=== PATIENT | male | born 1950 | race Caucasian/White ===

== ENCOUNTER 2016-03-23 08:00 | Outpatient (RCR) | payer OTHER ==
[2015-01-18 21:20] VITALS: BP 131/73
[~2016-03-23 08:00] MED LIST: AMARYL2 MG PO; ATORVASTATIN CA10 MG PO; EXCEDRIN P.M. T1 TAB PO; LISINOPRIL10 MG PO; METFORMIN500 MG PO; MULTIPLE VITAMI1 CAP PO; NAPROXEN220 MG PO; NAPROXEN250 MG PO; NAPROXEN500 M1 PO; PRILOSEC 20MG20 MG PO; RAPAFLO4 MG PO; TYLENOL 500MG500 MG PO; TYLENOL EXTRA500 M1 PO; ULTRAM50 M1 PO; VIBRAMYCIN100 MG PO; ZITHROMAX Z PA250 MG PO
== END 2016-03-24 | disposition home or self-care (01) ==
LOC: PT
DX: M75.102 Unspecified rotator cuff tear or rupture of left shoulder, not specified as traumatic (principal); Z47.89 Encounter for other orthopedic aftercare

== ENCOUNTER 2016-03-27 10:41 | Outpatient (RCR) | payer OTHER ==
[2015-01-18 21:20] VITALS: BP 131/73
[2016-05-17] MEDS ORDERED: LEVAQUIN 750MG750 M1 PO (22:26)
[2016-05-17] MEDS ORDERED: GLUCOPHAGE1000 MG PO (22:28)
[2016-05-17] MEDS ORDERED: AMARYL4 M1 PO (22:28)
[2016-05-17] MEDS ORDERED: CLOPIDOGREL PO (22:29)
[2016-05-17] MEDS ORDERED: TOPROL XL 25MG25 MG PO (22:29)
[2016-05-17] MEDS ORDERED: SINGULAIR PO (22:30)
[2016-05-17] MEDS ORDERED: PRINIVIL10 M1 PO (22:30)
[2016-05-17] MEDS ORDERED: ASPIRIN ADULT L81 M3 PO (22:30)
[2016-05-17] MEDS ORDERED: VITAMIN C PURE500 M1 PO (22:30)
[2016-05-17] MEDS ORDERED: ALL DAY PAIN R220 MG PO (22:31)
[2016-05-17] MEDS ORDERED: LIPITOR20 M2 PO (22:31)
== END 2016-05-27 10:20 | disposition home or self-care (01) ==
LOC: PT 10:41
DX: Z47.89 Encounter for other orthopedic aftercare (principal); M75.102 Unspecified rotator cuff tear or rupture of left shoulder, not specified as traumatic

== ENCOUNTER 2016-05-17 21:59 | Emergency (ER) | payer OTHER ==
[2016-05-17] MEDS ORDERED: LEVAQUIN 750MG750 M1 PO (22:26)
[2016-05-17] MEDS ORDERED: GLUCOPHAGE1000 MG PO (22:28)
[2016-05-17] MEDS ORDERED: AMARYL4 M1 PO (22:28)
[2016-05-17] MEDS ORDERED: CLOPIDOGREL PO (22:29)
[2016-05-17] MEDS ORDERED: TOPROL XL 25MG25 MG PO (22:29)
[2016-05-17] MEDS ORDERED: ASPIRIN ADULT L81 M3 PO (22:30)
[2016-05-17] MEDS ORDERED: PRINIVIL10 M1 PO (22:30)
[2016-05-17] MEDS ORDERED: SINGULAIR PO (22:30)
[2016-05-17] MEDS ORDERED: VITAMIN C PURE500 M1 PO (22:30)
[2016-05-17] MEDS ORDERED: ALL DAY PAIN R220 MG PO (22:31)
[2016-05-17] MEDS ORDERED: LIPITOR20 M2 PO (22:31)
[2016-05-18 00:30] VITALS: BP 126/82
== END 2016-05-18 00:30 | disposition home or self-care (01) ==
LOC: ED 21:59
DX: R06.00 Dyspnea, unspecified (principal); J44.1 Chronic obstructive pulmonary disease with (acute) exacerbation; I25.10 Atherosclerotic heart disease of native coronary artery without angina pectoris; E10.9 Type 1 diabetes mellitus without complications; I10 Essential (primary) hypertension; Z87.891 Personal history of nicotine dependence; Z79.82 Long term (current) use of aspirin
CPT/HCPCS: Q9967

== ENCOUNTER 2016-08-16 15:18 | Emergency (ER) | payer OTHER ==
[~2016-08-16] VITALS: Ht 182.9 cm; Wt 95.5 kg
[~2016-08-16 15:18] MED LIST changes: +ALL DAY PAIN R220 MG PO; +AMARYL4 M1 PO; +ASPIRIN ADULT L81 M3 PO; +CLOPIDOGREL PO; +GLUCOPHAGE1000 MG PO; +LEVAQUIN 750MG750 M1 PO; +LIPITOR20 M2 PO; +PRINIVIL10 M1 PO; +SINGULAIR PO; +TOPROL XL 25MG25 MG PO; +VITAMIN C PURE500 M1 PO
[2016-08-16] MEDS ORDERED: GLUCOPHAGE PO (15:30)
[2016-08-16] MEDS ORDERED: RT ADVAIR HFA 1112 G IH (15:31)
[2016-08-16] MEDS ORDERED: COMBIVENT RESPI1 SPR IH (15:31)
[2016-08-16 16:00] VITALS: BP 114/78
== END 2016-08-16 16:00 | disposition home or self-care (01) ==
LOC: ED 15:18
DX: Z48.01 Encounter for change or removal of surgical wound dressing (principal)

== ENCOUNTER 2016-08-24 09:07 | Outpatient (RCR) | payer MEDICARE ==
[~2016-08-24 09:07] MED LIST changes: +COMBIVENT RESPI1 SPR IH; +GLUCOPHAGE PO; +RT ADVAIR HFA 1112 G IH
== END 2016-11-22 | disposition still patient (30) ==
LOC: CARDREHAB
DX: Z95.5 Presence of coronary angioplasty implant and graft (principal); Z47.89 Encounter for other orthopedic aftercare

== ENCOUNTER 2016-11-23 09:00 | Outpatient (RCR) | payer MEDICARE | END 2017-02-21 | disposition home or self-care (01) | LOC: CARDREHAB | DX: Z48.812 Encounter for surgical aftercare following surgery on the circulatory system (principal); Z95.5 Presence of coronary angioplasty implant and graft ==

== ENCOUNTER → 2017-01-05 | Outpatient (CLI) | payer MEDICARE | LOC: RAD 07:51 | DX: R22.1 Localized swelling, mass and lump, neck (principal); R93.8 Abnormal findings on diagnostic imaging of other specified body structures ==

== ENCOUNTER 2017-02-27 16:19 | Emergency (ER) | payer MEDICARE ==
[~2017-02-27] VITALS: Wt 101.8 kg
[2017-02-27] MEDS ORDERED: CIPRO 500MG TA500 MG PO (16:34)
[2017-02-27] MEDS ORDERED: SINGULAIR 110 MG/TAB PO (16:34)
[2017-02-27] MEDS ORDERED: ASPIR LOW81 MG PO (16:35)
[2017-02-27] MEDS ORDERED: NEURONTIN300 MG/CAP (16:36)
[2017-02-27] MEDS ORDERED: PRILOSEC 20MG20 MG PO (16:36)
[2017-02-27 17:49] LABS: HEMATOCRIT 38.7 % (42.0-52.0); HEMOGLOBIN 13.3 g/dL (13.5-18.0); MEAN CELL VOLUME 96 fl (78-100); MEAN CORPUSCULAR HEMOGLOBIN 33 pg (27-31); MEAN CORPUSCULAR HGB CONC 34 g/dL (33-37); MEAN PLATELET VOLUME 11.5 fl (7.4-10.4); PLATELET COUNT 152 K/mm3 (130-400); RED BLOOD COUNT 4.05 M/mm3 (4.20-5.60); RED CELL DISTRIBUTION WIDTH 11.7 % (11.5-14.5); WHITE BLOOD COUNT 14.1 K/mm3 (4.8-10.8)
[2017-02-27 17:59] LABS: BUN/CREATININE RATIO 20.3 (6.0-26.0); CALCIUM 8.9 mg/dL (8.4-10.2); POTASSIUM 4.2 mmol/L (3.6-5.0)
[2017-02-27 18:00] LABS: LYMPHOCYTE 12 % (20-51); MONOCYTE 9 % (3-10); NEUTROPHILS 78 % (42-75)
[2017-02-27 20:27] VITALS: BP 136/75
== END 2017-02-27 20:02 | disposition short-term general hospital (02) ==
LOC: ED 16:19
PROVIDERS: Family Medicine
DX: R33.9 Retention of urine, unspecified (principal); R31.0 Gross hematuria; Z98.890 Other specified postprocedural states; Z79.02 Long term (current) use of antithrombotics/antiplatelets; Z79.82 Long term (current) use of aspirin; E11.9 Type 2 diabetes mellitus without complications; I10 Essential (primary) hypertension; Z95.5 Presence of coronary angioplasty implant and graft; J44.9 Chronic obstructive pulmonary disease, unspecified; K21.9 Gastro-esophageal reflux disease without esophagitis; Z79.84 Long term (current) use of oral hypoglycemic drugs
CPT/HCPCS: A4322; A4358

== ENCOUNTER 2017-06-16 12:41 | Emergency (ER) | payer MEDICARE ==
[~2017-06-16] VITALS: Ht 182.9 cm; Wt 93.2 kg
[~2017-06-16 12:41] MED LIST changes: +ASPIR LOW81 MG PO; +CIPRO 500MG TA500 MG PO; +NEURONTIN300 MG/CAP; +SINGULAIR 110 MG/TAB PO
[2017-06-16] MEDS ORDERED: CLOPIDOGREL75 M2 PO (13:13)
[2017-06-16] MEDS ORDERED: METFORMIN HYD1000 MG PO (13:14)
[2017-06-16] MEDS ORDERED: GLIMEPIRIDE4 MG PO (13:17)
[2017-06-16] MEDS ORDERED: ATORVASTATIN CA40 MG PO (13:18)
[2017-06-16] MEDS ORDERED: FLUTICASON0.05 MG/AC NS (13:19)
[2017-06-16] MEDS ORDERED: BEVESPI AEROS10.7 GM IH (13:21)
[2017-06-16] MEDS ORDERED: TYLENOL PM EXTR1 TA1 PO (13:23)
[2017-06-16 14:12] LABS: HEMATOCRIT 43.9 % (42.0-52.0); HEMOGLOBIN 14.6 g/dL (13.5-18.0); MEAN CELL VOLUME 91 fl (78-100); MEAN CORPUSCULAR HEMOGLOBIN 30 pg (27-31); MEAN CORPUSCULAR HGB CONC 33 g/dL (33-37); MEAN PLATELET VOLUME 11.4 fl (7.4-10.4); PLATELET COUNT 163 K/mm3 (130-400); RED BLOOD COUNT 4.82 M/mm3 (4.20-5.60); RED CELL DISTRIBUTION WIDTH 12.9 % (11.5-14.5); WHITE BLOOD COUNT 7.3 K/mm3 (4.8-10.8)
[2017-06-16 14:26] VITALS: BP 135/89
[2017-06-16 14:37] LABS: LYMPHOCYTE 33 % (20-51); NEUTROPHILS 54 % (42-75)
[2017-06-16 14:38] LABS: MONOCYTE 10 % (3-10)
== END 2017-06-16 14:41 | disposition home or self-care (01) ==
LOC: ED 12:41
PROVIDERS: Nurse Practitioner
DX: R04.0 Epistaxis (principal); Z79.02 Long term (current) use of antithrombotics/antiplatelets; Z88.1 Allergy status to other antibiotic agents; Z88.5 Allergy status to narcotic agent; Z88.8 Allergy status to other drugs, medicaments and biological substances; Z91.018 Allergy to other foods; Z87.891 Personal history of nicotine dependence; I25.10 Atherosclerotic heart disease of native coronary artery without angina pectoris; Z95.5 Presence of coronary angioplasty implant and graft; I10 Essential (primary) hypertension; J44.9 Chronic obstructive pulmonary disease, unspecified; Z79.82 Long term (current) use of aspirin; K21.9 Gastro-esophageal reflux disease without esophagitis; E11.9 Type 2 diabetes mellitus without complications; Z79.84 Long term (current) use of oral hypoglycemic drugs

== ENCOUNTER 2017-10-17 17:44 | Observation (INO) | payer MEDICARE ==
[~2017-10-17] VITALS: Ht 182.9 cm; Wt 94.2 kg
[~2017-10-17 17:44] MED LIST changes: +ATORVASTATIN CA40 MG PO; +BEVESPI AEROS10.7 GM IH; +CLOPIDOGREL75 M2 PO; +FLUTICASON0.05 MG/AC NS; +GLIMEPIRIDE4 MG PO; +METFORMIN HYD1000 MG PO; +TYLENOL PM EXTR1 TA1 PO
[2017-10-17 18:42] LABS: HEMATOCRIT 42.8 % (42.0-52.0); HEMOGLOBIN 14.8 g/dL (13.5-18.0); MEAN CELL VOLUME 92 fl (78-100); MEAN CORPUSCULAR HEMOGLOBIN 32 pg (27-31); MEAN CORPUSCULAR HGB CONC 35 g/dL (33-37); MEAN PLATELET VOLUME 11.1 fl (7.4-10.4); PLATELET COUNT 155 K/mm3 (130-400); RED BLOOD COUNT 4.64 M/mm3 (4.20-5.60); RED CELL DISTRIBUTION WIDTH 12.7 % (11.5-14.5); WHITE BLOOD COUNT 8.3 K/mm3 (4.8-10.8)
[2017-10-17 18:54] LABS: ALBUMIN 4.3 g/dL (3.5-5.0); TOTAL BILIRUBIN 0.5 mg/dL (0.2-1.3); TOTAL PROTEIN 7.5 g/dL (6.3-8.2)
[2017-10-17 22:08] LABS: BAND 0 % (0-10)
[2017-10-17 22:09] LABS: LYMPHOCYTE 20 % (20-51); MONOCYTE 16 % (3-10); NEUTROPHILS 58 % (42-75)
[2017-10-17 23:19] VITALS: BP 126/76
[2017-10-17 23:24] VITALS: BP 126/76
[2017-10-18 03:04] VITALS: BP 107/65
[2017-10-18 06:48] VITALS: BP 110/67
== END 2017-10-18 07:12 | disposition home or self-care (01) ==
LOC: ED 17:44 → MED/SURG 23:10
PROVIDERS: ADMIT Family Medicine
DX: R07.9 Chest pain, unspecified (principal); R79.89 Other specified abnormal findings of blood chemistry; K21.9 Gastro-esophageal reflux disease without esophagitis; E11.9 Type 2 diabetes mellitus without complications; J44.9 Chronic obstructive pulmonary disease, unspecified; I25.10 Atherosclerotic heart disease of native coronary artery without angina pectoris; I10 Essential (primary) hypertension; Z95.5 Presence of coronary angioplasty implant and graft; Z79.899 Other long term (current) drug therapy; Z79.02 Long term (current) use of antithrombotics/antiplatelets; Z79.82 Long term (current) use of aspirin; Z79.84 Long term (current) use of oral hypoglycemic drugs; I25.2 Old myocardial infarction; Z95.818 Presence of other cardiac implants and grafts
CPT/HCPCS: G0378; J1644

== ENCOUNTER 2017-11-02 08:19 | Outpatient (RCR) | payer MEDICARE | END 2017-11-11 12:00 | disposition home or self-care (01) | LOC: CARDREHAB 08:19 | DX: Z48.812 Encounter for surgical aftercare following surgery on the circulatory system (principal); Z95.818 Presence of other cardiac implants and grafts; Z98.61 Coronary angioplasty status ==

== ENCOUNTER 2017-11-18 08:18 | Outpatient (RCR) | payer MEDICARE, OTHER ==
[2017-11-27] MEDS ORDERED: CLEOCIN HCL150 M1 PO (18:08)
== END 2018-02-16 | disposition home or self-care (01) ==
LOC: CARDREHAB
DX: Z48.812 Encounter for surgical aftercare following surgery on the circulatory system (principal); Z95.818 Presence of other cardiac implants and grafts; Z98.61 Coronary angioplasty status

== ENCOUNTER 2017-11-27 17:32 | Emergency (ER) | payer MEDICARE, OTHER ==
[2017-11-27] MEDS ORDERED: CLEOCIN HCL150 M1 PO (18:08)
[2017-11-27 18:16] VITALS: BP 144/79
== END 2017-11-27 18:18 | disposition home or self-care (01) ==
LOC: ED 17:32
DX: S81.841A Puncture wound with foreign body, right lower leg, initial encounter (principal); W45.8XXA Other foreign body or object entering through skin, initial encounter; Y92.828 Other wilderness area as the place of occurrence of the external cause; I25.10 Atherosclerotic heart disease of native coronary artery without angina pectoris; E11.9 Type 2 diabetes mellitus without complications; Z23 Encounter for immunization; J44.9 Chronic obstructive pulmonary disease, unspecified; Z79.899 Other long term (current) drug therapy; Z79.82 Long term (current) use of aspirin; Z79.02 Long term (current) use of antithrombotics/antiplatelets
CPT/HCPCS: 90715

== ENCOUNTER → 2017-12-24 | Outpatient (CLI) | payer MEDICARE, OTHER ==
[2017-11-27 18:16] VITALS: BP 144/79
[~2017-12-24] MED LIST changes: +CLEOCIN HCL150 M1 PO
== END ==
LOC: RAD 09:21
DX: R10.31 Right lower quadrant pain (principal); Z95.9 Presence of cardiac and vascular implant and graft, unspecified; Z98.890 Other specified postprocedural states

== ENCOUNTER 2018-02-17 08:30 | Outpatient (RCR) | payer MEDICARE, OTHER ==
[2018-05-02 18:56] VITALS: BP 135/78
== END 2018-05-05 09:41 | disposition home or self-care (01) ==
LOC: CARDREHAB 08:30
DX: Z48.812 Encounter for surgical aftercare following surgery on the circulatory system (principal); Z95.818 Presence of other cardiac implants and grafts; Z98.61 Coronary angioplasty status

== ENCOUNTER 2018-05-02 12:58 | Emergency (ER) | payer MEDICARE ==
[~2018-05-02] VITALS: Ht 182.9 cm; Wt 93.2 kg
[2018-05-02 13:50] LABS: HEMATOCRIT 46.3 % (42.0-52.0); HEMOGLOBIN 15.6 g/dL (13.5-18.0); MEAN CELL VOLUME 92 fl (78-100); MEAN CORPUSCULAR HEMOGLOBIN 31 pg (27-31); MEAN CORPUSCULAR HGB CONC 34 g/dL (33-37); PLATELET COUNT 132 K/mm3 (130-400); RED BLOOD COUNT 5.05 M/mm3 (4.20-5.60); RED CELL DISTRIBUTION WIDTH 12.6 % (11.5-14.5)
[2018-05-02 14:09] LABS: MEAN PLATELET VOLUME 12.1 fl (7.4-10.4)
[2018-05-02 14:13] LABS: PROTHROMBIN TIME 11.1 SECONDS (9.0-12.0)
[2018-05-02 14:16] LABS: ALBUMIN 4.4 g/dL (3.5-5.0); CALCIUM 9.1 mg/dL (8.4-10.2); TOTAL BILIRUBIN 0.6 mg/dL (0.2-1.3); TOTAL PROTEIN 7.8 g/dL (6.3-8.2)
[2018-05-02 14:25] LABS: BAND 1 % (0-10); LYMPHOCYTE 35 % (20-51); MONOCYTE 12 % (3-10); NEUTROPHILS 45 % (42-75); TROPONIN-I < 0.03 ng/mL (0.00-0.06)
[2018-05-02 18:56] VITALS: BP 135/78
== END 2018-05-02 18:27 | disposition home or self-care (01) ==
LOC: ED 12:58
PROVIDERS: Nurse Practitioner Primary Care
DX: R07.9 Chest pain, unspecified (principal); I25.10 Atherosclerotic heart disease of native coronary artery without angina pectoris; I10 Essential (primary) hypertension; K21.9 Gastro-esophageal reflux disease without esophagitis; Z79.02 Long term (current) use of antithrombotics/antiplatelets; Z94.84 Stem cells transplant status; Z90.79 Acquired absence of other genital organ(s); Z95.828 Presence of other vascular implants and grafts

== ENCOUNTER → 2018-07-05 | Outpatient (CLI) | payer MEDICARE | LOC: RAD 08:15 | DX: J43.9 Emphysema, unspecified (principal); K76.0 Fatty (change of) liver, not elsewhere classified; K57.30 Diverticulosis of large intestine without perforation or abscess without bleeding | CPT/HCPCS: Q9967 ==

== ENCOUNTER → 2018-08-03 | Day surgery (SDC) | payer MEDICARE | LOC: MSO 08:42 | DX: H26.492 Other secondary cataract, left eye (principal); M19.90 Unspecified osteoarthritis, unspecified site; J44.9 Chronic obstructive pulmonary disease, unspecified; E11.9 Type 2 diabetes mellitus without complications; I10 Essential (primary) hypertension; Z79.01 Long term (current) use of anticoagulants; Z79.84 Long term (current) use of oral hypoglycemic drugs; Z88.6 Allergy status to analgesic agent; Z88.1 Allergy status to other antibiotic agents; Z88.8 Allergy status to other drugs, medicaments and biological substances; Z79.52 Long term (current) use of systemic steroids ==

== ENCOUNTER → 2018-09-07 | Day surgery (SDC) | payer MEDICARE | LOC: MSO 09:30 | DX: H26.491 Other secondary cataract, right eye (principal); Z88.1 Allergy status to other antibiotic agents; Z88.6 Allergy status to analgesic agent ==

== ENCOUNTER 2018-10-11 10:17 | Emergency (ER) | payer MEDICARE ==
[~2018-10-11] VITALS: Wt 96.3 kg
[2018-10-11 10:45] LABS: HEMATOCRIT 42.3 % (42.0-52.0); HEMOGLOBIN 14.4 g/dL (13.5-18.0); MEAN CELL VOLUME 94 fl (78-100); MEAN CORPUSCULAR HEMOGLOBIN 32 pg (27-31); MEAN CORPUSCULAR HGB CONC 34 g/dL (33-37); MEAN PLATELET VOLUME 11.2 fl (7.4-10.4); PLATELET COUNT 131 K/mm3 (130-400); RED BLOOD COUNT 4.52 M/mm3 (4.20-5.60); RED CELL DISTRIBUTION WIDTH 12.6 % (11.5-14.5); WHITE BLOOD COUNT 5.5 K/mm3 (4.8-10.8)
[2018-10-11 10:54] LABS: ALBUMIN 3.9 g/dL (3.4-4.8); SODIUM 138 mmol/L (136-145)
[2018-10-11 10:56] LABS: CALCIUM 8.8 mg/dL (8.3-10.5)
[2018-10-11 10:57] LABS: GLUCOSE 196 mg/dL (75-110); TOTAL PROTEIN 6.7 g/dL (6.2-8.1)
[2018-10-11 10:58] LABS: CARBON DIOXIDE 21 mmol/L (23-31)
[2018-10-11 10:59] LABS: TOTAL BILIRUBIN 0.5 mg/dL (0.2-1.2)
[2018-10-11 11:01] LABS: LYMPHOCYTE 22 % (20-51); MONOCYTE 11 % (3-10); NEUTROPHILS 63 % (42-75)
[2018-10-11 11:02] LABS: AST-SGOT 28 U/L (5-34)
[2018-10-11 11:03] LABS: ALT/SGPT 37 U/L (0-55)
[2018-10-11 11:10] LABS: TROPONIN-I < 0.03 ng/mL (<0.030)
[2018-10-11] MEDS ORDERED: PREDNISONE20 M1 PO (11:55)
[2018-10-11] MEDS ORDERED: ALBUTEROL2.5 MG/3 M IH (11:55)
[2018-10-11 12:09] VITALS: BP 122/73
[2018-10-11] MEDS ORDERED: TYLENOL EXTRA500 M2 PO (12:35)
[2018-10-11] MEDS ORDERED: TYLENOL PM EXTR1 TA1 PO (12:36)
[2018-10-11] MEDS ORDERED: GLUTATHIONE IH (12:38)
[2018-10-11] MEDS ORDERED: NITROSTAT0.4 M1 SL (12:39)
[2018-10-11] MEDS ORDERED: PROTONIX20 M1 PO (12:41)
[2018-10-11] MEDS ORDERED: REVATIO20 MG PO (12:41)
== END 2018-10-11 12:09 | disposition home or self-care (01) ==
LOC: ED 10:17
PROVIDERS: Nurse Practitioner Primary Care
DX: J44.1 Chronic obstructive pulmonary disease with (acute) exacerbation (principal); I25.10 Atherosclerotic heart disease of native coronary artery without angina pectoris; I50.9 Heart failure, unspecified; Z95.5 Presence of coronary angioplasty implant and graft; Z90.49 Acquired absence of other specified parts of digestive tract; Z98.890 Other specified postprocedural states
CPT/HCPCS: J1100

== ENCOUNTER 2018-12-06 18:38 | Emergency (ER) | payer MEDICARE ==
[~2018-12-06] VITALS: Ht 182.9 cm; Wt 96.6 kg
[~2018-12-06 18:38] MED LIST changes: +ALBUTEROL2.5 MG/3 M IH; +GLUTATHIONE IH; +NITROSTAT0.4 M1 SL; +PREDNISONE20 M1 PO; +PROTONIX20 M1 PO; +REVATIO20 MG PO; +TYLENOL EXTRA500 M2 PO
[2018-12-06] MEDS ORDERED: METOPROLOL SUCC25 M1 PO (18:53)
[2018-12-06] MEDS ORDERED: ATORVASTATIN CA80 MG PO (18:57)
[2018-12-06] MEDS ORDERED: TRELEGY ELLIPT1 EACH IH (18:58)
[2018-12-06 19:23] LABS: HEMATOCRIT 42.2 % (42.0-52.0); HEMOGLOBIN 14.2 g/dL (13.5-18.0); MEAN CELL VOLUME 94 fl (78-100); MEAN CORPUSCULAR HEMOGLOBIN 32 pg (27-31); MEAN CORPUSCULAR HGB CONC 34 g/dL (33-37); PLATELET COUNT 140 K/mm3 (130-400); RED BLOOD COUNT 4.47 M/mm3 (4.20-5.60); RED CELL DISTRIBUTION WIDTH 12.6 % (11.5-14.5); WHITE BLOOD COUNT 6.2 K/mm3 (4.8-10.8)
[2018-12-06 19:30] LABS: ALBUMIN 3.7 g/dL (3.4-4.8); POTASSIUM 3.9 mmol/L (3.5-5.1); SODIUM 140 mmol/L (136-145)
[2018-12-06 19:31] LABS: CALCIUM 8.4 mg/dL (8.3-10.5)
[2018-12-06 19:32] LABS: GLUCOSE 189 mg/dL (75-110)
[2018-12-06 19:33] LABS: TOTAL PROTEIN 6.6 g/dL (6.2-8.1)
[2018-12-06 19:34] LABS: CARBON DIOXIDE 26 mmol/L (23-31); TOTAL BILIRUBIN 0.4 mg/dL (0.2-1.2)
[2018-12-06 19:38] LABS: AST-SGOT 22 U/L (5-34)
[2018-12-06 19:39] LABS: ALT/SGPT 26 U/L (0-55)
[2018-12-06 19:45] LABS: CKMB ISOENZYME 0.9 ng/mL (0.0-3.5)
[2018-12-06 19:50] LABS: TROPONIN-I < 0.03 ng/mL (<0.030)
[2018-12-06 20:08] LABS: D-DIMER 1.18 mg/L FEU (0.15-0.50)
[2018-12-06 20:10] LABS: LYMPHOCYTE 29 % (20-51); MONOCYTE 12 % (3-10); NEUTROPHILS 57 % (42-75)
[2018-12-06 22:35] VITALS: BP 124/69
== END 2018-12-06 22:35 | disposition short-term general hospital (02) ==
LOC: ED 18:38
PROVIDERS: Nurse Practitioner Family
DX: J84.10 Pulmonary fibrosis, unspecified (principal); I25.10 Atherosclerotic heart disease of native coronary artery without angina pectoris; R55 Syncope and collapse; E11.9 Type 2 diabetes mellitus without complications; I10 Essential (primary) hypertension; E78.5 Hyperlipidemia, unspecified; J44.9 Chronic obstructive pulmonary disease, unspecified; K21.9 Gastro-esophageal reflux disease without esophagitis; Z90.79 Acquired absence of other genital organ(s); Z95.5 Presence of coronary angioplasty implant and graft; Z98.890 Other specified postprocedural states; Z79.82 Long term (current) use of aspirin; Z79.02 Long term (current) use of antithrombotics/antiplatelets; Z87.891 Personal history of nicotine dependence
CPT/HCPCS: Q9967

== ENCOUNTER 2019-05-05 18:15 | Emergency (ER) | payer MEDICARE ==
[~2019-05-05] VITALS: Wt 91.9 kg
[~2019-05-05 18:15] MED LIST changes: +ATORVASTATIN CA80 MG PO; +METOPROLOL SUCC25 M1 PO; +TRELEGY ELLIPT1 EACH IH
[2019-05-05 18:52] LABS: HEMATOCRIT 46.4 % (42.0-52.0); HEMOGLOBIN 15.3 g/dL (13.5-18.0); MEAN CELL VOLUME 95 fl (78-100); MEAN CORPUSCULAR HEMOGLOBIN 31 pg (27-31); MEAN CORPUSCULAR HGB CONC 33 g/dL (33-37); MEAN PLATELET VOLUME 11.8 fl (7.4-10.4); PLATELET COUNT 164 K/mm3 (130-400); RED BLOOD COUNT 4.89 M/mm3 (4.20-5.60); RED CELL DISTRIBUTION WIDTH 12.6 % (11.5-14.5); WHITE BLOOD COUNT 6.9 K/mm3 (4.8-10.8)
[2019-05-05 19:13] LABS: ALBUMIN 4.2 g/dL (3.4-4.8); POTASSIUM 4.3 mmol/L (3.5-5.1)
[2019-05-05 19:14] LABS: CALCIUM 8.4 mg/dL (8.3-10.5)
[2019-05-05 19:15] LABS: LYMPHOCYTE 28 % (20-51); NEUTROPHILS 55 % (42-75); TOTAL PROTEIN 7.4 g/dL (6.2-8.1)
[2019-05-05 19:16] LABS: MONOCYTE 13 % (3-10)
[2019-05-05 19:17] LABS: TOTAL BILIRUBIN 0.3 mg/dL (0.2-1.2)
[2019-05-05 19:54] VITALS: BP 135/86
== END 2019-05-05 19:54 | disposition home or self-care (01) ==
LOC: ED 18:15
PROVIDERS: Family Medicine
DX: M94.0 Chondrocostal junction syndrome [Tietze] (principal); E11.9 Type 2 diabetes mellitus without complications; J44.9 Chronic obstructive pulmonary disease, unspecified; J84.10 Pulmonary fibrosis, unspecified; Z79.02 Long term (current) use of antithrombotics/antiplatelets; Z79.82 Long term (current) use of aspirin; Z79.84 Long term (current) use of oral hypoglycemic drugs; Z87.891 Personal history of nicotine dependence; Z94.84 Stem cells transplant status; Z95.5 Presence of coronary angioplasty implant and graft

== ENCOUNTER 2019-05-21 22:16 | Emergency (ER) | payer MEDICARE ==
[~2019-05-21] VITALS: Ht 180.3 cm; Wt 84.6 kg
[2019-05-21 23:29] LABS: HEMOGLOBIN 14.5 g/dL (13.5-18.0); MEAN CELL VOLUME 94 fl (78-100); MEAN CORPUSCULAR HEMOGLOBIN 32 pg (27-31); MEAN CORPUSCULAR HGB CONC 34 g/dL (33-37); MEAN PLATELET VOLUME 11.7 fl (7.4-10.4); PLATELET COUNT 167 K/mm3 (130-400); RED BLOOD COUNT 4.57 M/mm3 (4.20-5.60); RED CELL DISTRIBUTION WIDTH 12.8 % (11.5-14.5); WHITE BLOOD COUNT 6.7 K/mm3 (4.8-10.8)
[2019-05-21 23:31] LABS: ALBUMIN 4.2 g/dL (3.4-4.8)
[2019-05-21 23:32] LABS: POTASSIUM 3.8 mmol/L (3.5-5.1)
[2019-05-21 23:33] LABS: CALCIUM 9.3 mg/dL (8.3-10.5)
[2019-05-21 23:34] LABS: TOTAL PROTEIN 7.1 g/dL (6.2-8.1)
[2019-05-21 23:36] LABS: TOTAL BILIRUBIN 0.4 mg/dL (0.2-1.2)
[2019-05-21 23:44] LABS: LYMPHOCYTE 30 % (20-51); MONOCYTE 12 % (3-10); NEUTROPHILS 53 % (42-75)
[2019-05-22 01:25] VITALS: BP 138/68
== END 2019-05-22 01:25 | disposition home or self-care (01) ==
LOC: ED 22:16
PROVIDERS: Nurse Practitioner Primary Care
DX: R14.1 Gas pain (principal); I25.10 Atherosclerotic heart disease of native coronary artery without angina pectoris; I25.2 Old myocardial infarction; I10 Essential (primary) hypertension; J44.9 Chronic obstructive pulmonary disease, unspecified; K21.9 Gastro-esophageal reflux disease without esophagitis; E11.9 Type 2 diabetes mellitus without complications; Z79.02 Long term (current) use of antithrombotics/antiplatelets; Z79.82 Long term (current) use of aspirin; Z79.84 Long term (current) use of oral hypoglycemic drugs; Z86.79 Personal history of other diseases of the circulatory system; Z90.49 Acquired absence of other specified parts of digestive tract; Z95.5 Presence of coronary angioplasty implant and graft
CPT/HCPCS: Q9967

== ENCOUNTER 2019-06-03 09:57 | Emergency (ER) | payer MEDICARE ==
[~2019-06-03] VITALS: Ht 182.9 cm; Wt 92.7 kg
[2019-06-03 11:29] LABS: HEMATOCRIT 45.1 % (42.0-52.0); MEAN CELL VOLUME 95 fl (78-100); MEAN CORPUSCULAR HEMOGLOBIN 32 pg (27-31); MEAN CORPUSCULAR HGB CONC 33 g/dL (33-37); PLATELET COUNT 140 K/mm3 (130-400); RED BLOOD COUNT 4.74 M/mm3 (4.20-5.60); RED CELL DISTRIBUTION WIDTH 12.4 % (11.5-14.5); WHITE BLOOD COUNT 5.7 K/mm3 (4.8-10.8)
[2019-06-03 11:41] LABS: ALBUMIN 3.9 g/dL (3.4-4.8); POTASSIUM 4.3 mmol/L (3.5-5.1)
[2019-06-03 11:42] LABS: CALCIUM 9.6 mg/dL (8.3-10.5)
[2019-06-03 11:44] LABS: TOTAL PROTEIN 6.8 g/dL (6.2-8.1)
[2019-06-03 11:45] LABS: TOTAL BILIRUBIN 0.6 mg/dL (0.2-1.2)
[2019-06-03 11:51] LABS: LYMPHOCYTE 30 % (20-51); MONOCYTE 11 % (3-10); NEUTROPHILS 55 % (42-75)
[2019-06-03 12:12] LABS: RESPIRATORY VIRUS PANEL-PCR AMS
[2019-06-03] MEDS ORDERED: PREDNISONE20 M1 PO (13:39)
[2019-06-03 13:46] VITALS: BP 125/70
== END 2019-06-03 13:55 | disposition home or self-care (01) ==
LOC: ED 09:57
PROVIDERS: Family Medicine
DX: J84.10 Pulmonary fibrosis, unspecified (principal); I25.10 Atherosclerotic heart disease of native coronary artery without angina pectoris; I25.2 Old myocardial infarction; Z79.02 Long term (current) use of antithrombotics/antiplatelets; Z79.82 Long term (current) use of aspirin; Z79.84 Long term (current) use of oral hypoglycemic drugs; Z87.891 Personal history of nicotine dependence; Z95.5 Presence of coronary angioplasty implant and graft; Z99.81 Dependence on supplemental oxygen; Z98.890 Other specified postprocedural states
CPT/HCPCS: J7512

== ENCOUNTER 2019-06-12 20:53 | Emergency (ER) | payer MEDICARE ==
[2019-06-12 21:09] LABS: EOS # 0.4 (0.04-0.40); EOS % 4.5 % (0.0-4.0); HEMATOCRIT 44.1 % (42.0-52.0); HEMOGLOBIN 14.9 g/dL (13.5-18.0); LYMPH# 2.6 (1.50-4.00); MEAN CELL VOLUME 95 fl (78-100); MEAN CORPUSCULAR HEMOGLOBIN 32 pg (27-31); MEAN CORPUSCULAR HGB CONC 34 g/dL (33-37); MEAN PLATELET VOLUME 11.4 fl (7.4-10.4); MONO # 1.1 (0.20-0.80); PLATELET COUNT 152 K/mm3 (130-400); RED BLOOD COUNT 4.64 M/mm3 (4.20-5.60); RED CELL DISTRIBUTION WIDTH 12.6 % (11.5-14.5); WHITE BLOOD COUNT 9.2 K/mm3 (4.8-10.8)
[2019-06-12 21:37] LABS: ALBUMIN 3.9 g/dL (3.4-4.8); POTASSIUM 3.9 mmol/L (3.5-5.1); SODIUM 139 mmol/L (136-145)
[2019-06-12 21:38] LABS: PROTHROMBIN TIME 9.4 SECONDS (9.0-12.0)
[2019-06-12 21:40] LABS: GLUCOSE 109 mg/dL (75-110); TOTAL PROTEIN 6.5 g/dL (6.2-8.1)
[2019-06-12 21:41] LABS: CARBON DIOXIDE 21 mmol/L (23-31)
[2019-06-12 21:42] LABS: TOTAL BILIRUBIN 0.4 mg/dL (0.2-1.2)
[2019-06-12 21:45] LABS: AST-SGOT 25 U/L (5-34)
[2019-06-12 21:46] LABS: ALT/SGPT 36 U/L (0-55)
[2019-06-12 21:52] LABS: PARTIAL THROMBOPLASTIN TIME 20.5 SECONDS (21.0-32.0)
[2019-06-12 21:54] LABS: TROPONIN-I < 0.03 ng/mL (<0.030)
[2019-06-13 00:40] VITALS: BP 124/63
== END 2019-06-13 00:40 | disposition home or self-care (01) ==
LOC: ED 20:53
PROVIDERS: Nurse Practitioner
DX: R07.9 Chest pain, unspecified (principal); I50.9 Heart failure, unspecified; I25.2 Old myocardial infarction; Z90.89 Acquired absence of other organs; Z87.891 Personal history of nicotine dependence; Z79.02 Long term (current) use of antithrombotics/antiplatelets; Z79.51 Long term (current) use of inhaled steroids; Z79.84 Long term (current) use of oral hypoglycemic drugs; Z79.82 Long term (current) use of aspirin; Z95.5 Presence of coronary angioplasty implant and graft

== ENCOUNTER 2019-12-18 15:49 | Emergency (ER) | payer MEDICARE ==
[~2019-12-18] VITALS: Ht 182.9 cm; Wt 88.6 kg
[2019-12-18] MEDS ORDERED: GLUTATHIONE (16:06)
[2019-12-18] MEDS ORDERED: PROTONIX20 M1 PO (16:06)
[2019-12-18 16:41] LABS: HEMATOCRIT 45.5 % (42.0-52.0); HEMOGLOBIN 14.8 g/dL (13.5-18.0); MEAN CELL VOLUME 95 fl (78-100); MEAN CORPUSCULAR HEMOGLOBIN 31 pg (27-31); MEAN CORPUSCULAR HGB CONC 33 g/dL (33-37); MEAN PLATELET VOLUME 11.1 fl (7.4-10.4); PLATELET COUNT 184 K/mm3 (130-400); RED BLOOD COUNT 4.81 M/mm3 (4.20-5.60); RED CELL DISTRIBUTION WIDTH 12.9 % (11.5-14.5)
[2019-12-18 16:50] LABS: ALBUMIN 3.8 g/dL (3.4-4.8); LYMPHOCYTE 18 % (20-51); MONOCYTE 15 % (3-10); NEUTROPHILS 66 % (42-75); SODIUM 140 mmol/L (136-145)
[2019-12-18 16:51] LABS: CALCIUM 8.8 mg/dL (8.3-10.5)
[2019-12-18 16:52] LABS: GLUCOSE 143 mg/dL (75-110); TOTAL PROTEIN 6.8 g/dL (6.2-8.1)
[2019-12-18 16:53] LABS: CARBON DIOXIDE 23 mmol/L (23-31)
[2019-12-18 16:54] LABS: TOTAL BILIRUBIN 0.6 mg/dL (0.2-1.2)
[2019-12-18 16:58] LABS: AST-SGOT 19 U/L (5-34)
[2019-12-18 16:59] LABS: ALT/SGPT 25 U/L (0-55)
[2019-12-18 17:05] LABS: TROPONIN-I < 0.03 ng/mL (<0.030)
[2019-12-18] MEDS ORDERED: CEFDINIR300 MG PO (18:12)
[2019-12-18] MEDS ORDERED: PREDNISONE20 M1 PO (18:12)
[2019-12-18 18:36] VITALS: BP 113/71
== END 2019-12-18 18:37 | disposition home or self-care (01) ==
LOC: ED 15:49
PROVIDERS: Nurse Practitioner Primary Care
DX: J06.9 Acute upper respiratory infection, unspecified (principal); B96.89 Other specified bacterial agents as the cause of diseases classified elsewhere; I10 Essential (primary) hypertension; E11.9 Type 2 diabetes mellitus without complications; I25.10 Atherosclerotic heart disease of native coronary artery without angina pectoris; K21.9 Gastro-esophageal reflux disease without esophagitis; Z20.828 Contact with and (suspected) exposure to other viral communicable diseases; Z95.5 Presence of coronary angioplasty implant and graft; Z90.49 Acquired absence of other specified parts of digestive tract; Z88.1 Allergy status to other antibiotic agents; Z88.5 Allergy status to narcotic agent; Z88.6 Allergy status to analgesic agent; Z88.8 Allergy status to other drugs, medicaments and biological substances; Z79.02 Long term (current) use of antithrombotics/antiplatelets; Z79.84 Long term (current) use of oral hypoglycemic drugs
CPT/HCPCS: J7512

== ENCOUNTER → 2020-05-16 | Outpatient (CLI) | payer MEDICARE ==
[~2020-05-16] MED LIST changes: +ADULT ASPIRIN R81 MG PO; +CEFDINIR300 MG PO; +GLUTATHIONE; +IPRATROPIUM BROM3 M1 IH; +ISOSORBIDE30 MG PO; +LASIX20 M1 PO; +MORPHINE S10 MG/5 M2 PO; +PREDNISONE20 MG PO; +ZITHROMAX500 M2 PO
== END ==
LOC: LAB 10:49
DX: Z01.812 Encounter for preprocedural laboratory examination (principal); Z20.822 Contact with and (suspected) exposure to COVID-19

== ENCOUNTER → 2020-06-12 | Outpatient (CLI) | payer MEDICARE | LOC: RAD 09:38 | DX: J84.9 Interstitial pulmonary disease, unspecified (principal); J84.10 Pulmonary fibrosis, unspecified; I25.10 Atherosclerotic heart disease of native coronary artery without angina pectoris; J43.9 Emphysema, unspecified ==

== ENCOUNTER 2020-06-25 18:32 | Emergency (ER) | payer MEDICARE ==
[~2020-06-25 18:32] MED LIST changes: -ADULT ASPIRIN R81 MG PO; -IPRATROPIUM BROM3 M1 IH; -ISOSORBIDE30 MG PO; -LASIX20 M1 PO; -MORPHINE S10 MG/5 M2 PO; -PREDNISONE20 MG PO; -ZITHROMAX500 M2 PO
[2020-06-25 19:08] LABS: HEMATOCRIT 44.5 % (42.0-52.0); HEMOGLOBIN 14.6 g/dL (13.5-18.0); MEAN CELL VOLUME 96 fl (78-100); MEAN CORPUSCULAR HEMOGLOBIN 32 pg (27-31); MEAN CORPUSCULAR HGB CONC 33 g/dL (33-37); PLATELET COUNT 160 K/mm3 (130-400); RED BLOOD COUNT 4.62 M/mm3 (4.20-5.60); RED CELL DISTRIBUTION WIDTH 12.6 % (11.5-14.5); WHITE BLOOD COUNT 8.3 K/mm3 (4.8-10.8)
[2020-06-25 19:12] LABS: ALBUMIN 4.3 g/dL (3.4-4.8); POTASSIUM 4.5 mmol/L (3.5-5.1); SODIUM 141 mmol/L (136-145)
[2020-06-25 19:14] LABS: CALCIUM 8.9 mg/dL (8.3-10.5)
[2020-06-25 19:15] LABS: GLUCOSE 129 mg/dL (75-110); TOTAL PROTEIN 7.9 g/dL (6.2-8.1)
[2020-06-25 19:16] LABS: CARBON DIOXIDE 26 mmol/L (23-31)
[2020-06-25 19:17] LABS: TOTAL BILIRUBIN 0.5 mg/dL (0.2-1.2)
[2020-06-25 19:20] LABS: AST-SGOT 30 U/L (5-34)
[2020-06-25 19:21] LABS: ALT/SGPT 35 U/L (0-55)
[2020-06-25 19:38] LABS: TROPONIN-I < 0.03 ng/mL (<0.030)
[2020-06-25 20:06] LABS: LYMPHOCYTE 18 % (20-51); MONOCYTE 14 % (3-10); NEUTROPHILS 61 % (42-75)
[2020-06-25 20:08] LABS: D-DIMER 1.6 mg/L FEU (0.15-0.50)
[2020-06-25 20:46] LABS: URINE APPEARANCE CLOUDY; URINE BILIRUBIN NEGATIVE (NEGATIVE); URINE BLOOD TRACE (NEGATIVE); URINE COLOR YELLOW; URINE KETONE NEGATIVE (NEGATIVE); URINE LEUKOCYTE ESTERASE TRACE (NEGATIVE); URINE MUCUS PRESENT (NOT PRESENT); URINE NITRATE NEGATIVE (NEGATIVE); URINE PROTEIN(semi-quant) 1+ mg/dL (NEGATIVE); URINE UROBILINOGEN NORMAL (NORMAL)
[2020-06-25] MEDS ORDERED: ISOSORBIDE30 MG PO (21:25)
[2020-06-25] MEDS ORDERED: ADULT ASPIRIN R81 MG PO (21:29)
[2020-06-25 21:55] VITALS: BP 95/69
== END 2020-06-25 21:55 | disposition short-term general hospital (02) ==
LOC: ED 18:32
PROVIDERS: Nurse Practitioner Family
DX: J90 Pleural effusion, not elsewhere classified (principal); J84.10 Pulmonary fibrosis, unspecified; J96.01 Acute respiratory failure with hypoxia; I25.10 Atherosclerotic heart disease of native coronary artery without angina pectoris; E11.9 Type 2 diabetes mellitus without complications; I10 Essential (primary) hypertension; K21.9 Gastro-esophageal reflux disease without esophagitis; Z20.822 Contact with and (suspected) exposure to COVID-19; Z95.9 Presence of cardiac and vascular implant and graft, unspecified; Z87.891 Personal history of nicotine dependence; Z79.01 Long term (current) use of anticoagulants; Z79.84 Long term (current) use of oral hypoglycemic drugs; Z79.82 Long term (current) use of aspirin
CPT/HCPCS: J1940; J7030

== ENCOUNTER 2020-09-11 21:00 | Emergency (ER) | payer MEDICARE ==
[~2020-09-11 21:00] MED LIST changes: +ADULT ASPIRIN R81 MG PO; +ISOSORBIDE30 MG PO
[2020-09-11 21:51] LABS: BASO # 0.03 (0.02-0.10); EOS # 0.17 (0.04-0.40); EOS % 1.3 % (0.0-4.0); HEMATOCRIT 43.5 % (42.0-52.0); HEMOGLOBIN 14.7 g/dL (13.5-18.0); LYMPH# 1.59 (1.50-4.00); MEAN CELL VOLUME 94 fl (78-100); MEAN CORPUSCULAR HEMOGLOBIN 32 pg (27-31); MEAN CORPUSCULAR HGB CONC 34 g/dL (33-37); NEU # 9.87 (1.40-6.50); PLATELET COUNT 143 K/mm3 (130-400); RED BLOOD COUNT 4.62 M/mm3 (4.20-5.60); RED CELL DISTRIBUTION WIDTH 11.9 % (11.5-14.5); WHITE BLOOD COUNT 12.8 K/mm3 (4.8-10.8)
[2020-09-11 22:00] LABS: ALBUMIN 4.4 g/dL (3.4-4.8)
[2020-09-11 22:01] LABS: CALCIUM 9.2 mg/dL (8.3-10.5)
[2020-09-11 22:02] LABS: TOTAL PROTEIN 7.9 g/dL (6.2-8.1)
[2020-09-11 22:04] LABS: TOTAL BILIRUBIN 0.7 mg/dL (0.2-1.2)
[2020-09-11 22:09] LABS: PROTHROMBIN TIME 10.7 SECONDS (9.0-12.0)
[2020-09-11 22:29] LABS: D-DIMER 2.31 mg/L FEU (0.15-0.50)
[2020-09-11 22:46] LABS: URINE APPEARANCE CLEAR; URINE BILIRUBIN NEGATIVE (NEGATIVE); URINE BLOOD NEGATIVE (NEGATIVE); URINE COLOR YELLOW; URINE GLUCOSE NEGATIVE (NEGATIVE); URINE KETONE 1+ (NEGATIVE); URINE LEUKOCYTE ESTERASE NEGATIVE (NEGATIVE); URINE NITRATE NEGATIVE (NEGATIVE); URINE PROTEIN(semi-quant) NEGATIVE (NEGATIVE); URINE UROBILINOGEN NORMAL (NORMAL); URINE WBC 0-1 /hpf (0-3)
[2020-09-11 22:47] LABS: URINE MUCUS PRESENT (NOT PRESENT)
[2020-09-11] MEDS ORDERED: MORPHINE S10 MG/5 M2 PO (23:27)
[2020-09-12] MEDS ORDERED: PREDNISONE20 MG PO (00:57)
[2020-09-12] MEDS ORDERED: ZITHROMAX500 M2 PO (00:57)
[2020-09-12 01:25] VITALS: BP 122/73
== END 2020-09-12 01:25 | disposition home or self-care (01) ==
LOC: ED 21:00
PROVIDERS: Physician Assistant
DX: J44.1 Chronic obstructive pulmonary disease with (acute) exacerbation (principal); I25.10 Atherosclerotic heart disease of native coronary artery without angina pectoris; J84.10 Pulmonary fibrosis, unspecified; R09.02 Hypoxemia; E11.9 Type 2 diabetes mellitus without complications; K21.9 Gastro-esophageal reflux disease without esophagitis; I10 Essential (primary) hypertension; Z87.891 Personal history of nicotine dependence; Z79.02 Long term (current) use of antithrombotics/antiplatelets; Z79.84 Long term (current) use of oral hypoglycemic drugs; Z88.6 Allergy status to analgesic agent; Z79.899 Other long term (current) drug therapy; Z20.822 Contact with and (suspected) exposure to COVID-19
CPT/HCPCS: J7512; Q9967

== ENCOUNTER 2021-01-21 22:46 | Emergency (ER) | payer MEDICARE ==
[~2021-01-21] VITALS: Ht 182.9 cm; Wt 93.2 kg
[~2021-01-21 22:46] MED LIST changes: +MORPHINE S10 MG/5 M2 PO; +PREDNISONE20 MG PO; +ZITHROMAX500 M2 PO
[2021-01-21 23:12] LABS: BASO # 0.03 K/mm3 (0.02-0.10); EOS # 0.42 K/mm3 (0.04-0.40); EOS % 5.2 % (0.0-4.0); HEMATOCRIT 42.3 % (42.0-52.0); HEMOGLOBIN 14.2 g/dL (13.5-18.0); LYMPH# 1.73 K/mm3 (1.50-4.00); MEAN CELL VOLUME 93 fl (78-100); MEAN CORPUSCULAR HEMOGLOBIN 31 pg (27-31); MEAN CORPUSCULAR HGB CONC 34 g/dL (33-37); MEAN PLATELET VOLUME 11.4 fl (7.4-10.4); MONO # 1.23 K/mm3 (0.20-0.80); NEU # 4.65 K/mm3 (1.40-6.50); PLATELET COUNT 156 K/mm3 (130-400); RED BLOOD COUNT 4.55 M/mm3 (4.20-5.60); RED CELL DISTRIBUTION WIDTH 11.7 % (11.5-14.5); WHITE BLOOD COUNT 8.1 K/mm3 (4.8-10.8)
[2021-01-21 23:23] LABS: POTASSIUM 3.6 mmol/L (3.5-5.1)
[2021-01-21 23:24] LABS: CALCIUM 9.1 mg/dL (8.3-10.5)
[2021-01-21 23:26] LABS: TOTAL PROTEIN 7.9 g/dL (6.2-8.1)
[2021-01-21 23:27] LABS: TOTAL BILIRUBIN 0.7 mg/dL (0.2-1.2)
[2021-01-22] MEDS ORDERED: LASIX20 M1 PO (01:00)
[2021-01-22] MEDS ORDERED: REVATIO20 MG PO (01:00)
[2021-01-22] MEDS ORDERED: ZITHROMAX500 M2 PO (02:36)
[2021-01-22] MEDS ORDERED: PREDNISONE20 MG PO (02:36)
[2021-01-22] MEDS ORDERED: IPRATROPIUM BROM3 M1 IH (02:36)
[2021-01-22 03:07] VITALS: BP 129/77
== END 2021-01-22 03:07 ==
LOC: ED 22:46
PROVIDERS: Physician Assistant
DX: J44.1 Chronic obstructive pulmonary disease with (acute) exacerbation (principal); J40 Bronchitis, not specified as acute or chronic; K21.9 Gastro-esophageal reflux disease without esophagitis; R09.02 Hypoxemia; J84.10 Pulmonary fibrosis, unspecified; E11.9 Type 2 diabetes mellitus without complications; I10 Essential (primary) hypertension; I25.10 Atherosclerotic heart disease of native coronary artery without angina pectoris; Z79.02 Long term (current) use of antithrombotics/antiplatelets; Z79.84 Long term (current) use of oral hypoglycemic drugs; Z79.82 Long term (current) use of aspirin
CPT/HCPCS: J7512; Q9967